=== PATIENT | male | born 1975 ===

== ENCOUNTER 2018-06-22 10:45 | Emergency (ER) | payer SELFPAY ==
[2018-06-22 10:50] VITALS: BMI 29.0
[2018-06-22 10:57] VITALS: BP 174/99; PULSE 108; RESP 18; TEMP 98.4; O2SAT 99
[2018-06-22] MEDS ORDERED: Naproxen 550 mg Tab PO STA (11:33)
--- NOTE | 2018-06-22 11:35 | C.PDOC ---
History Of Present Illness 42-year-old male presents to the ED for evaluation of right wrist pain which began after he sustained a fall yesterday. Patient states he was in the shower and accidentally slipped and hit his wrist against the tub. He took Tylenol last night without relief. Patient woke up this morning and noticed swelling and painful range of motion of the area, prompting ED visit. Patient denies head injury, LOC, nausea, vomiting, extremity numbness/weakness or tingling. Time Seen by Provider: 06/22/18 11:09 Chief Complaint (Nursing): Upper Extremity Problem/Injury History Per: Patient History/Exam Limitations: no limitations Onset/Duration Of Symptoms: Hrs Current Symptoms Are (Timing): Still Present Quality: "Pain" Additional History Per: Patient Past Medical History Reviewed: Historical Data, Nursing Documentation, Vital Signs Vital Signs: Last Vital Signs Temp 98.4 F 06/22/18 10:52 Pulse 108 H 06/22/18 10:52 Resp 18 06/22/18 10:52 BP 174/99 H 06/22/18 10:52 Pulse Ox 99 06/22/18 10:52 Primary Care Provider: FAMILY PROVIDER,NO - Medical History PMH: HTN Surgical History: No Surg Hx Family History: States: Unknown Family Hx - Social History Hx Alcohol Use: Yes Hx Substance Use: No - Immunization History Hx Tetanus Toxoid Vaccination: No Hx Influenza Vaccination: No Hx Pneumococcal Vaccination: No Review Of Systems Gastrointestinal: Negative for: Nausea, Vomiting Musculoskeletal: Positive for: Other (right wrist pain ) Neurological: Negative for: Weakness, Numbness, Other (head injury, LOC ) Physical Exam - Physical Exam Appears: Non-toxic, No Acute Distress Skin: Normal Color, Warm, Dry, No Ecchymosis, No Other (erythema to right wrist ) Head: Atraumatic, Normacephalic Eye(s): bilateral: Normal Inspection Ear(s): Bilateral: Normal Nose: No Discharge Oral Mucosa: Moist Tongue: Normal Appearing Lips: Normal Appearing Neck: Normal ROM, Supple Chest: Symmetrical Cardiovascular: Rhythm Regular Respiratory: Normal Breath Sounds, No Wheezing Gastrointestinal/Abdominal: Soft, No Tenderness Extremity: Normal ROM (ROM of right wrist is intact, but limited secondary to pain ), Tenderness (to radial aspect of right wrist ), Capillary Refill (less than 2 seconds ), No Deformity, Swelling (slight, to right wrist ) Pulses: Left Radial: Normal, Right Radial: Normal Neurological/Psych: Oriented x3, Normal Speech, Normal Cognition, Normal Motor, Normal Sensation ED Course And Treatment O2 Sat by Pulse Oximetry: 99 (on RA) Pulse Ox Interpretation: Normal - Other Rad right wrist XR X-Ray: Viewed By Me, Read By Radiologist Interpretation: PROCEDURE: Right Wrist Radiographs. Three views. HISTORY: s/p fall. COMPARISON: None available. FINDINGS: BONES: No acute displaced fracture. JOINTS: No dislocation. SOFT TISSUES: Unremarkable. No evidence of radiopaque foreign body. OTHER FINDINGS: None. IMPRESSION: No acute displaced fracture, dislocation, or significant joint effusion identified. If symptoms persist, or if there is continued clinical concern, x-ray follow-up in 7-10 days should be considered. Medical Decision Making Medical Decision Making: Impression: 42 year old male with right wrist pain s/p fall yesterday Plan: * right wrist XR * Naproxen PO * reassess and disposition Progress: Right wrist XR ordered and reviewed- unremarkable Naproxen PO given patient notified of the results and is stable for discharge alysha bandage applied Disposition - Disposition Referrals: [facility] [Outside] Rolanda Lopez MD [Staff Provider] - Disposition: HOME/ ROUTINE Disposition Time: 11:46 Condition: STABLE Additional Instructions: Continue Naproxen twice daily Rest, Ice, Compression, and Elevation Follow up with Orthopedics in 1-2 days if pain persists- may need MRI for further evaluation Return to the ED if symptoms worsen Prescriptions: Naproxen [Naprosyn] 500 mg PO BID #30 tablet Instructions: Wrist Sprain (DC) Forms: [employer] (Tanzanian) Print Language: NIGERIEN - Clinical Impression Clinical Impression: Sprain of wrist, right, Right wrist pain - 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 - Scribe Statement The provider has reviewed the documentation as recorded by the Scribe (Johnna Bradshaw) All medical record entries made by the Scribe were at my direction and personally dictated by me. I have reviewed the chart and agree that the record accurately reflects my personal performance of the history, physical exam, medical decision making, and the department course for this patient. I have also personally directed, reviewed, and agree with the discharge instructions and disposition.
[2018-06-22] MEDS ORDERED: Naproxen 550 mg Tab PO ONE (11:44)
--- NOTE | 2018-06-22 11:45 | C.PDOC ---
Time Seen by Provider: 06/22/18 11:09 Chief Complaint (Nursing): Upper Extremity Problem/Injury Past Medical History Vital Signs: Last Vital Signs Temp 98.4 F 06/22/18 10:52 Pulse 108 H 06/22/18 10:52 Resp 18 06/22/18 10:52 BP 174/99 H 06/22/18 10:52 Pulse Ox 99 06/22/18 10:52 Primary Care Provider: FAMILY PROVIDER,NO - Medical History PMH: HTN - Social History Hx Alcohol Use: Yes Hx Substance Use: No - Immunization History Hx Tetanus Toxoid Vaccination: No Hx Influenza Vaccination: No Hx Pneumococcal Vaccination: No ED Course And Treatment O2 Sat by Pulse Oximetry: 99 Disposition Counseled Patient/Family Regarding: Studies Performed, Diagnosis, Need For Followup, Rx Given - Disposition Referrals: Rolanda Lopez MD [Staff Provider] - [facility] [Outside] Disposition: HOME/ ROUTINE Disposition Time: 11:46 Condition: STABLE Additional Instructions: Continue Naproxen twice daily Rest, Ice, Compression, and Elevation Follow up with Orthopedics in 1-2 days if pain persists- may need MRI for further evaluation Return to the ED if symptoms worsen Prescriptions: Naproxen [Naprosyn] 500 mg PO BID #30 tablet Instructions: Wrist Sprain (DC) Forms: [employer] (Ecuadorean) Print Language: ITALIAN - Clinical Impression Clinical Impression: Sprain of wrist, right, Right wrist pain
--- NOTE | 2018-06-22 12:12 | RAD ---
PROCEDURE: Right Wrist Radiographs. Three views. HISTORY: s/p fall COMPARISON: None available. FINDINGS: BONES: No acute displaced fracture. JOINTS: No dislocation. SOFT TISSUES: Unremarkable. No evidence of radiopaque foreign body OTHER FINDINGS: None. IMPRESSION: No acute displaced fracture, dislocation, or significant joint effusion identified. If symptoms persist, or if there is continued clinical concern, x-ray follow-up in 7-10 days should be considered.
== END 2018-06-22 12:00 | disposition home or self-care (01) ==
LOC: C.ER 10:45
DX: S63.501A Unspecified sprain of right wrist, initial encounter (principal); W18.2XXA Fall in (into) shower or empty bathtub, initial encounter; Y93.E1 Activity, personal bathing and showering; M25.531 Pain in right wrist